=== PATIENT | female | born 1955 | race Caucasian/White ===

== ENCOUNTER 2018-10-05 16:31 | Inpatient (IN) | payer MEDICAID, OTHER ==
[2018-10-05 18:05] LABS: ADD MAN DIFF? NO
[2018-10-05 18:10] LABS: ABNORMAL IP MESSAGE 1; BASOPHILS % 0.4 % (0.0-2.0); EOSINOPHILS # 0.1 10^3/ul (0.0-0.5); EOSINOPHILS % 1.6 % (0.0-7.0); HEMATOCRIT 36.1 % (37.0-47.0); HEMOGLOBIN 11.6 g/dl (12.0-16.0); LYMPHOCYTES # 0.4 10^3/ul (0.8-2.9); LYMPHOCYTES % 6.3 % (15.0-51.0); MEAN CORPUSCULAR HEMOGLOBIN 25.8 pg (29.0-33.0); MEAN CORPUSCULAR HGB CONC 32.1 g/dl (32.0-37.0); MEAN CORPUSCULAR VOLUME 80.2 fl (82.0-101.0); MONOCYTE # 0.4 10^3/ul (0.3-0.9); MONOCYTES % 7.6 % (0.0-11.0); NEUTROPHIL # 4.8 10^3/ul (1.6-7.5); NEUTROPHILS % 83.7 % (39.0-77.0); NUCLEATED RED BLOOD CELLS # 0.1 10^3/ul (0.0-0.0); NUCLEATED RED BLOOD CELLS% 1.6 /100WBC (0.0-0.0); PLATELET COUNT 115 10^3/UL (140-415)
[2018-10-05 18:10] LABS: WHITE BLOOD COUNT 5.7 10^3/ul (4.8-10.8)
[2018-10-05 18:12] LABS: POSITIVE DIFF @See below
[2018-10-05 18:28] LABS: INR 1.31; PROTIME 16.5 Sec (11.9-14.9); PT RATIO 1.3
[2018-10-05 18:37] LABS: ALANINE AMINOTRANSFERASE 25 IU/L (13-69); ALBUMIN 3.3 g/dl (3.3-4.9); ALBUMIN/GLOBULIN RATIO 1.13; ALKALINE PHOSPHATASE 124 IU/L (42-121); ANION GAP 20 (5-13); ASPARTATE AMINO TRANSFERASE 44 IU/L (15-46); BILIRUBIN,INDIRECT 0.2 mg/dl (0-1.1); BILIRUBIN,TOTAL 0.2 mg/dl (0.2-1.3); BLOOD UREA NITROGEN 119 mg/dl (7-20); CARBON DIOXIDE 16 mmol/L (21-31); CHLORIDE 103 mmol/L (97-110); Estimated GFR 5 mL/min (>60); GLUCOSE 177 mg/dl (70-220); POTASSIUM 4.6 mmol/L (3.5-5.1); SODIUM 139 mmol/L (135-144); TOTAL PROTEIN 6.2 g/dl (6.1-8.1)
[2018-10-05 18:57] LABS: CALCIUM 4.5 mg/dl (8.4-10.2)
[2018-10-05 19:03] LABS: B-TYPE NATRIURETIC PEPTIDE 130000 PG/ML (0-125)
[2018-10-05] MEDS: CALCIUM GLUCONATE 10% 2 GM in DEXTROSE 5% 100 ML IVPB (20:16)
[2018-10-05 22:16] LABS: LACTIC ACID 1.5 mmol/L (0.5-2.0)
[2018-10-05] MEDS ORDERED: DEXTROSE 50% 50 ML SYRINGE IV ×2 (23:30)
[2018-10-05] MEDS ORDERED: GLUCOSE GEL 15 GRAM TUBE BUCCAL (23:30)
[2018-10-05] MEDS ORDERED: ONDANSETRON 4 MG INJ IV (23:30)
[2018-10-05] MEDS ORDERED: GLUCOSE GEL 15 GRAM TUBE PO ×2 (23:30)
[2018-10-05] MEDS ORDERED: NACL 0.9% 3 ML SYG IV (23:30)
[2018-10-05] MEDS ORDERED: GLUCAGON 1 MG INJ IM (23:30)
[2018-10-06] MEDS: ACCU-CHEK XX (02:00)
[2018-10-06 03:28] LABS: POTASSIUM,URINE RANDOM 45.3 mmol/L (25-125)
[2018-10-06 03:28] LABS: SODIUM,URINE RANDOM 32 mmol/L (30-90)
[2018-10-06 03:29] LABS: ADD UMIC YES; UR ASCORBIC ACID NEGATIVE (NEGATIVE); UR BACTERIA MANY /HPF (NONE SEEN); UR BILIRUBIN (Dip) NEGATIVE (NEGATIVE); UR BLOOD (Dip) 1+ mg/dL (NEGATIVE); UR CLARITY CLOUDY (CLEAR); UR COLOR YELLOW (YELLOW); UR GLUCOSE (Dip) 2+ mg/dL (NEGATIVE); UR KETONES (Dip) NEGATIVE (NEGATIVE); UR LEUKOCYTE ESTERASE (Dip) 2+ Leu/ul (NEGATIVE); UR MUCUS FEW /HPF (NONE SEEN); UR NITRITE (Dip) NEGATIVE (NEGATIVE); UR RBC 6 /HPF (0-5); UR SPECIFIC GRAVITY (Dip) 1.013 (1.003-1.030); UR TOTAL PROTEIN (Dip) 3+ mg/dl (NEGATIVE); UR UROBILINOGEN (Dip) NEGATIVE (NEGATIVE); UR WBC 60 /HPF (0-5)
[2018-10-06 06:02] LABS: ADD MAN DIFF? NO
[2018-10-06 06:12] LABS: WHITE BLOOD COUNT 5.2 10^3/ul (4.8-10.8)
[2018-10-06 06:12] LABS: ABNORMAL IP MESSAGE 1; BASOPHILS % 0.4 % (0.0-2.0); EOSINOPHILS # 0.1 10^3/ul (0.0-0.5); EOSINOPHILS % 1.9 % (0.0-7.0); HEMATOCRIT 35.8 % (37.0-47.0); HEMOGLOBIN 11.3 g/dl (12.0-16.0); LYMPHOCYTES # 0.5 10^3/ul (0.8-2.9); LYMPHOCYTES % 9.8 % (15.0-51.0); MEAN CORPUSCULAR HEMOGLOBIN 25.2 pg (29.0-33.0); MEAN CORPUSCULAR HGB CONC 31.6 g/dl (32.0-37.0); MEAN CORPUSCULAR VOLUME 79.9 fl (82.0-101.0); MONOCYTE # 0.5 10^3/ul (0.3-0.9); NEUTROPHILS % 77.7 % (39.0-77.0); NUCLEATED RED BLOOD CELLS # 0.2 10^3/ul (0.0-0.0); NUCLEATED RED BLOOD CELLS% 3.7 /100WBC (0.0-0.0); PLATELET COUNT 116 10^3/UL (140-415); RED BLOOD COUNT 4.48 10^6/ul (4.20-5.40)
[2018-10-06 06:34] LABS: POSITIVE DIFF @See below
[2018-10-06 06:51] LABS: ALANINE AMINOTRANSFERASE 25 IU/L (13-69); ALBUMIN 3.2 g/dl (3.3-4.9); ALKALINE PHOSPHATASE 115 IU/L (42-121); ANION GAP 22 (5-13); ASPARTATE AMINO TRANSFERASE 31 IU/L (15-46); BILIRUBIN,INDIRECT 0.3 mg/dl (0-1.1); BILIRUBIN,TOTAL 0.3 mg/dl (0.2-1.3); BLOOD UREA NITROGEN 119 mg/dl (7-20); CARBON DIOXIDE 15 mmol/L (21-31); CHLORIDE 105 mmol/L (97-110); CHOL/HDL RATIO 4.6 RATIO; CHOLESTEROL 108 mg/dl (100-200); CREATININE 7.25 mg/dl (0.44-1.00); Estimated GFR 6 mL/min (>60); GLUCOSE 133 mg/dl (70-220); HDL CHOLESTEROL 23 mg/dl (35-98); LDL CHOLESTEROL,CALCULATED 70 mg/dl; MAGNESIUM 3.1 mg/dl (1.7-2.5); POTASSIUM 4.2 mmol/L (3.5-5.1); SODIUM 142 mmol/L (135-144); TOTAL PROTEIN 6.1 g/dl (6.1-8.1); TRIGLYCERIDES 73 mg/dl (0-149)
[2018-10-06 06:56] LABS: CALCIUM 4.9 mg/dl (8.4-10.2)
[2018-10-06 07:16] LABS: HEMOGLOBIN A1C 6.9 % (0-5.9)
[2018-10-06] MEDS ORDERED: HEPARIN 5,000 UNIT/0.5 ML VIAL (08:11)
[2018-10-06] MEDS: INSULIN ASPART [NOVOLOG] 3 ML PEN SC ×4 (08:34→20:55)
[2018-10-06] MEDS: HEPARIN 5,000 UNIT/1 ML VIAL SC (09:00)
[2018-10-06] MEDS: CALCIUM GLUCONATE 10% 2 GM in DEXTROSE 5% 100 ML IVPB (09:00)
[2018-10-06] MEDS: CITRIC ACID/NA CITRATE 30 ML CUP PO ×2 (10:00→20:48)
[2018-10-06] MEDS: CALCIUM/VITAMIN D (500/200) TAB PO ×2 (10:00→20:48)
[2018-10-06] MEDS: hydrALAzine 20 MG INJ IV (15:21)
[2018-10-06] MEDS: FUROSEMIDE 40 MG INJ IV (17:13)
[2018-10-06] MEDS: AMLODIPINE 5 MG TAB PO (17:19)
[2018-10-07] MEDS: ACCU-CHEK XX (02:53)
[2018-10-07] MEDS: FUROSEMIDE 40 MG INJ IV ×2 (05:55→21:00)
[2018-10-07 06:02] LABS: ANION GAP 22 (5-13); CARBON DIOXIDE 15 mmol/L (21-31); CHLORIDE 102 mmol/L (97-110); CREATININE 7.75 mg/dl (0.44-1.00); Estimated GFR 5 mL/min (>60); GLUCOSE 127 mg/dl (70-220); PHOSPHORUS 9.2 mg/dl (2.5-4.9); POTASSIUM 3.7 mmol/L (3.5-5.1); SODIUM 139 mmol/L (135-144)
[2018-10-07 06:17] LABS: BLOOD UREA NITROGEN > 120 mg/dl (7-20)
[2018-10-07 06:32] LABS: CALCIUM 5.3 mg/dl (8.4-10.2)
[2018-10-07] MEDS: INSULIN ASPART [NOVOLOG] 3 ML PEN SC ×4 (07:46→21:37)
[2018-10-07] MEDS: AMLODIPINE 5 MG TAB PO (09:02)
[2018-10-07] MEDS: CITRIC ACID/NA CITRATE 30 ML CUP PO ×2 (09:02→21:00)
[2018-10-07] MEDS: CALCIUM/VITAMIN D (500/200) TAB PO ×2 (09:02→21:00)
[2018-10-07 11:09] LABS: INR 1.35; PROTIME 16.9 Sec (11.9-14.9); PT RATIO 1.3
[2018-10-07] MEDS: SEVELAMER CARBONATE 800 MG TABLET PO ×2 (12:00→18:43)
[2018-10-07] MEDS: CALCITRIOL 1 MCG INJ IV (13:05)
[2018-10-07] MEDS: ACETAMINOPHEN 325 MG TAB PO (13:27)
[2018-10-07] MEDS ORDERED: SOD CHLORIDE 0.9% 500 ML (14:17)
[2018-10-07] MEDS ORDERED: HEPARIN 1000 UNITS/ML 10 ML INJ (14:17)
[2018-10-07] MEDS ORDERED: LIDOCAINE 2% (MDV) 20 ML INJ (14:17)
[2018-10-07 16:59] LABS: HEPATITIS B SURFACE ANTIGEN NEGATIVE (NEGATIVE)
[2018-10-07 17:17] LABS: HEPATITIS B SURFACE ANTIBODY NEGATIVE (NEGATIVE)
[2018-10-07] MEDS: MANNITOL 25% 50 ML INJ IV* (17:26)
[2018-10-07] MEDS: HEPARIN 1000 UNITS/ML 10 ML INJ CATHETER (18:36)
[2018-10-08] MEDS: hydrALAzine 20 MG INJ IV (00:37)
[2018-10-08] MEDS: FUROSEMIDE 40 MG INJ IV ×2 (05:24→17:01)
[2018-10-08 05:42] LABS: ABNORMAL IP MESSAGE 1; ADD MAN DIFF? NO; BASOPHILS % 0.4 % (0.0-2.0); EOSINOPHILS # 0.1 10^3/ul (0.0-0.5); EOSINOPHILS % 2.5 % (0.0-7.0); HEMATOCRIT 31.2 % (37.0-47.0); HEMOGLOBIN 10.2 g/dl (12.0-16.0); LYMPHOCYTES # 0.4 10^3/ul (0.8-2.9); LYMPHOCYTES % 7.6 % (15.0-51.0); MEAN CORPUSCULAR HEMOGLOBIN 25.4 pg (29.0-33.0); MEAN CORPUSCULAR HGB CONC 32.7 g/dl (32.0-37.0); MEAN CORPUSCULAR VOLUME 77.6 fl (82.0-101.0); MEAN PLATELET VOLUME 10.6 fl (7.4-10.4); MONOCYTE # 0.6 10^3/ul (0.3-0.9); MONOCYTES % 12.2 % (0.0-11.0); NEUTROPHIL # 3.7 10^3/ul (1.6-7.5); NEUTROPHILS % 77.1 % (39.0-77.0); NUCLEATED RED BLOOD CELLS% 0.6 /100WBC (0.0-0.0); PLATELET COUNT 111 10^3/UL (140-415); RED BLOOD COUNT 4.02 10^6/ul (4.20-5.40); RED CELL DISTRIBUTION WIDTH 16.8 % (11.5-14.5)
[2018-10-08 05:42] LABS: WHITE BLOOD COUNT 4.8 10^3/ul (4.8-10.8)
[2018-10-08 05:44] LABS: POSITIVE DIFF @See below
[2018-10-08 06:29] LABS: ANION GAP 15 (5-13); BLOOD UREA NITROGEN 95 mg/dl (7-20); CARBON DIOXIDE 22 mmol/L (21-31); CHLORIDE 102 mmol/L (97-110); CREATININE 6.01 mg/dl (0.44-1.00); Estimated GFR 7 mL/min (>60); GLUCOSE 166 mg/dl (70-220); MAGNESIUM 2.5 mg/dl (1.7-2.5); PHOSPHORUS 6.4 mg/dl (2.5-4.9); POTASSIUM 3.5 mmol/L (3.5-5.1); SODIUM 139 mmol/L (135-144)
[2018-10-08 06:44] LABS: CALCIUM 5.8 mg/dl (8.4-10.2)
[2018-10-08] MEDS: INSULIN ASPART [NOVOLOG] 3 ML PEN SC ×4 (07:42→20:57)
[2018-10-08] MEDS: CITRIC ACID/NA CITRATE 30 ML CUP PO ×2 (08:42→20:58)
[2018-10-08] MEDS: LINAGLIPTIN 5 MG TABLET PO (08:42)
[2018-10-08] MEDS: CALCIUM/VITAMIN D (500/200) TAB PO ×2 (08:42→20:58)
[2018-10-08] MEDS: SEVELAMER CARBONATE 800 MG TABLET PO ×3 (08:42→17:01)
[2018-10-08] MEDS: AMLODIPINE 5 MG TAB PO (08:42)
[2018-10-08] MEDS: CALCIUM GLUCONATE 10% 1 GM in DEXTROSE 5% 100 ML IVPB (08:43)
[2018-10-08] MEDS: HEPARIN 1000 UNITS/ML 10 ML INJ CATHETER (16:15)
[2018-10-08 19:18] LABS: PTH CALCIUM 5.5 mg/dL (8.6-10.4)
[2018-10-09 05:45] LABS: ADD MAN DIFF? NO
[2018-10-09 05:47] LABS: WHITE BLOOD COUNT 5.7 10^3/ul (4.8-10.8)
[2018-10-09 05:47] LABS: ABNORMAL IP MESSAGE 1; BASOPHILS % 0.4 % (0.0-2.0); EOSINOPHILS # 0.2 10^3/ul (0.0-0.5); EOSINOPHILS % 3.5 % (0.0-7.0); HEMATOCRIT 33.1 % (37.0-47.0); HEMOGLOBIN 10.4 g/dl (12.0-16.0); LYMPHOCYTES # 0.7 10^3/ul (0.8-2.9); LYMPHOCYTES % 12.5 % (15.0-51.0); MEAN CORPUSCULAR HEMOGLOBIN 25.2 pg (29.0-33.0); MEAN CORPUSCULAR HGB CONC 31.4 g/dl (32.0-37.0); MEAN CORPUSCULAR VOLUME 80.1 fl (82.0-101.0); MEAN PLATELET VOLUME 11.2 fl (7.4-10.4); MONOCYTE # 0.9 10^3/ul (0.3-0.9); MONOCYTES % 15.5 % (0.0-11.0); NEUTROPHIL # 3.9 10^3/ul (1.6-7.5); NEUTROPHILS % 67.7 % (39.0-77.0); PLATELET COUNT 127 10^3/UL (140-415); RED BLOOD COUNT 4.13 10^6/ul (4.20-5.40); RED CELL DISTRIBUTION WIDTH 16.9 % (11.5-14.5)
[2018-10-09] MEDS: FUROSEMIDE 40 MG INJ IV ×2 (05:48→17:29)
[2018-10-09 06:02] LABS: POSITIVE DIFF @See below
[2018-10-09 06:15] LABS: ANION GAP 11 (5-13); BLOOD UREA NITROGEN 74 mg/dl (7-20); CALCIUM 6.4 mg/dl (8.4-10.2); CARBON DIOXIDE 27 mmol/L (21-31); CHLORIDE 101 mmol/L (97-110); CREATININE 5.35 mg/dl (0.44-1.00); Estimated GFR 8 mL/min (>60); GLUCOSE 112 mg/dl (70-220); MAGNESIUM 2.4 mg/dl (1.7-2.5); PHOSPHORUS 5.5 mg/dl (2.5-4.9); POTASSIUM 4.1 mmol/L (3.5-5.1); SODIUM 139 mmol/L (135-144)
[2018-10-09 07:46] LABS: PTH INTACT 484 pg/mL (14-64)
[2018-10-09] MEDS: INSULIN ASPART [NOVOLOG] 3 ML PEN SC ×4 (07:46→20:08)
[2018-10-09] MEDS: CALCIUM/VITAMIN D (500/200) TAB PO ×2 (08:11→20:09)
[2018-10-09] MEDS: SEVELAMER CARBONATE 800 MG TABLET PO ×3 (08:11→17:28)
[2018-10-09] MEDS: CITRIC ACID/NA CITRATE 30 ML CUP PO ×2 (08:11→20:09)
[2018-10-09] MEDS: LINAGLIPTIN 5 MG TABLET PO (08:11)
[2018-10-09] MEDS: AMLODIPINE 5 MG TAB PO ×2 (08:14→15:46)
[2018-10-09 09:20] LABS: IRON 21 ug/dl (35-150)
[2018-10-09 09:30] LABS: % IRON SATURATION 6 % SAT (22-52); TOTAL IRON BINDING CAPACITY 342 ug/dl (241-421)
[2018-10-09 09:52] LABS: FERRITIN 11.5 ng/ml (11.1-264.0)
[2018-10-09] MEDS: HEPARIN 1000 UNITS/ML 10 ML INJ CATHETER ×2 (15:15→15:18)
[2018-10-09] MEDS: hydrALAzine 20 MG INJ IV (15:47)
[2018-10-10 05:25] LABS: ADD MAN DIFF? NO
[2018-10-10 05:35] LABS: WHITE BLOOD COUNT 5.3 10^3/ul (4.8-10.8)
[2018-10-10 05:35] LABS: BASOPHILS % 0.6 % (0.0-2.0); EOSINOPHILS # 0.1 10^3/ul (0.0-0.5); EOSINOPHILS % 2.6 % (0.0-7.0); HEMOGLOBIN 9.8 g/dl (12.0-16.0); LYMPHOCYTES # 0.7 10^3/ul (0.8-2.9); LYMPHOCYTES % 13.5 % (15.0-51.0); MEAN CORPUSCULAR HEMOGLOBIN 24.9 pg (29.0-33.0); MEAN CORPUSCULAR HGB CONC 30.6 g/dl (32.0-37.0); MEAN CORPUSCULAR VOLUME 81.2 fl (82.0-101.0); MEAN PLATELET VOLUME 11.5 fl (7.4-10.4); MONOCYTE # 0.9 10^3/ul (0.3-0.9); NEUTROPHIL # 3.6 10^3/ul (1.6-7.5); NEUTROPHILS % 66.9 % (39.0-77.0); PLATELET COUNT 125 10^3/UL (140-415); RED BLOOD COUNT 3.94 10^6/ul (4.20-5.40); RED CELL DISTRIBUTION WIDTH 16.8 % (11.5-14.5)
[2018-10-10 05:58] LABS: ANION GAP 8 (5-13); BLOOD UREA NITROGEN 55 mg/dl (7-20); CALCIUM 6.6 mg/dl (8.4-10.2); CARBON DIOXIDE 30 mmol/L (21-31); CHLORIDE 98 mmol/L (97-110); CREATININE 3.86 mg/dl (0.44-1.00); Estimated GFR 12 mL/min (>60); GLUCOSE 132 mg/dl (70-220); MAGNESIUM 2.2 mg/dl (1.7-2.5); PHOSPHORUS 4.2 mg/dl (2.5-4.9); POTASSIUM 3.8 mmol/L (3.5-5.1); SODIUM 136 mmol/L (135-144)
[2018-10-10] MEDS: FUROSEMIDE 40 MG INJ IV (06:08)
[2018-10-10] MEDS: INSULIN ASPART [NOVOLOG] 3 ML PEN SC ×4 (07:50→21:50)
[2018-10-10] MEDS: CITRIC ACID/NA CITRATE 30 ML CUP PO ×3 (09:00→20:57)
[2018-10-10] MEDS: AMLODIPINE 5 MG TAB PO (09:00)
[2018-10-10] MEDS: SEVELAMER CARBONATE 800 MG TABLET PO ×3 (09:04→17:41)
[2018-10-10] MEDS: LINAGLIPTIN 5 MG TABLET PO (09:05)
[2018-10-10] MEDS: CALCIUM/VITAMIN D (500/200) TAB PO ×2 (09:06→20:57)
[2018-10-10] MEDS: MULTIVIT/CA CARB/B CMPLX/FA TAB PO (09:36)
[2018-10-10] MEDS: CALCITRIOL 0.25 MCG CAP PO (09:36)
[2018-10-11 05:23] LABS: ADD MAN DIFF? NO
[2018-10-11 05:26] LABS: ABNORMAL IP MESSAGE 1; BASOPHILS % 0.4 % (0.0-2.0); EOSINOPHILS # 0.2 10^3/ul (0.0-0.5); EOSINOPHILS % 3.3 % (0.0-7.0); HEMATOCRIT 30.9 % (37.0-47.0); HEMOGLOBIN 9.5 g/dl (12.0-16.0); LYMPHOCYTES # 0.6 10^3/ul (0.8-2.9); LYMPHOCYTES % 10.4 % (15.0-51.0); MEAN CORPUSCULAR HEMOGLOBIN 24.9 pg (29.0-33.0); MEAN CORPUSCULAR HGB CONC 30.7 g/dl (32.0-37.0); MEAN CORPUSCULAR VOLUME 81.1 fl (82.0-101.0); MEAN PLATELET VOLUME 11.4 fl (7.4-10.4); MONOCYTE # 0.7 10^3/ul (0.3-0.9); MONOCYTES % 13.5 % (0.0-11.0); NEUTROPHIL # 3.9 10^3/ul (1.6-7.5); NEUTROPHILS % 72.2 % (39.0-77.0); PLATELET COUNT 115 10^3/UL (140-415); RED BLOOD COUNT 3.81 10^6/ul (4.20-5.40); RED CELL DISTRIBUTION WIDTH 17.5 % (11.5-14.5)
[2018-10-11 05:26] LABS: WHITE BLOOD COUNT 5.4 10^3/ul (4.8-10.8)
[2018-10-11 05:39] LABS: POSITIVE DIFF @See below
[2018-10-11 06:08] LABS: ANION GAP 11 (5-13); BLOOD UREA NITROGEN 78 mg/dl (7-20); CALCIUM 6.4 mg/dl (8.4-10.2); CARBON DIOXIDE 29 mmol/L (21-31); CHLORIDE 95 mmol/L (97-110); Estimated GFR 9 mL/min (>60); GLUCOSE 133 mg/dl (70-220); MAGNESIUM 2.3 mg/dl (1.7-2.5); PHOSPHORUS 4.3 mg/dl (2.5-4.9); POTASSIUM 4.1 mmol/L (3.5-5.1); SODIUM 135 mmol/L (135-144)
[2018-10-11] MEDS: INSULIN ASPART [NOVOLOG] 3 ML PEN SC ×4 (07:50→20:39)
[2018-10-11] MEDS: CITRIC ACID/NA CITRATE 30 ML CUP PO ×2 (09:00→20:39)
[2018-10-11] MEDS: CALCIUM/VITAMIN D (500/200) TAB PO ×2 (09:00→20:39)
[2018-10-11] MEDS: CALCITRIOL 0.25 MCG CAP PO (09:00)
[2018-10-11] MEDS: LINAGLIPTIN 5 MG TABLET PO (09:01)
[2018-10-11] MEDS: AMLODIPINE 5 MG TAB PO (09:01)
[2018-10-11] MEDS: SEVELAMER CARBONATE 800 MG TABLET PO ×3 (09:01→17:47)
[2018-10-11] MEDS: MULTIVIT/CA CARB/B CMPLX/FA TAB PO (09:01)
[2018-10-11] MEDS: HEPARIN 1000 UNITS/ML 10 ML INJ CATHETER (14:13)
[2018-10-12] MEDS: INSULIN ASPART [NOVOLOG] 3 ML PEN SC ×4 (07:50→20:43)
[2018-10-12] MEDS: CALCITRIOL 0.25 MCG CAP PO (08:24)
[2018-10-12] MEDS: SEVELAMER CARBONATE 800 MG TABLET PO ×3 (08:24→18:00)
[2018-10-12] MEDS: MULTIVIT/CA CARB/B CMPLX/FA TAB PO (08:24)
[2018-10-12] MEDS: CITRIC ACID/NA CITRATE 30 ML CUP PO ×2 (08:24→20:42)
[2018-10-12] MEDS: CALCIUM/VITAMIN D (500/200) TAB PO ×2 (08:24→20:42)
[2018-10-12] MEDS: LINAGLIPTIN 5 MG TABLET PO (08:25)
[2018-10-12] MEDS: AMLODIPINE 5 MG TAB PO (08:25)
[2018-10-13] MEDS: INSULIN ASPART [NOVOLOG] 3 ML PEN SC ×4 (07:50→21:02)
[2018-10-13] MEDS: CALCITRIOL 0.25 MCG CAP PO (08:49)
[2018-10-13] MEDS: LINAGLIPTIN 5 MG TABLET PO (08:50)
[2018-10-13] MEDS: CALCIUM/VITAMIN D (500/200) TAB PO ×2 (08:50→20:59)
[2018-10-13] MEDS: SEVELAMER CARBONATE 800 MG TABLET PO ×3 (08:50→17:37)
[2018-10-13] MEDS: MULTIVIT/CA CARB/B CMPLX/FA TAB PO (08:50)
[2018-10-13] MEDS: AMLODIPINE 5 MG TAB PO (08:50)
[2018-10-13] MEDS ORDERED: CITRIC ACID/SODIUM CITRATE 15 ML CUP PO (09:00)
[2018-10-14 05:50] LABS: ADD MAN DIFF? NO
[2018-10-14 05:59] LABS: WHITE BLOOD COUNT 4.9 10^3/ul (4.8-10.8)
[2018-10-14 05:59] LABS: ABNORMAL IP MESSAGE 1; BASOPHILS % 0.6 % (0.0-2.0); EOSINOPHILS # 0.1 10^3/ul (0.0-0.5); EOSINOPHILS % 2.2 % (0.0-7.0); HEMATOCRIT 30.1 % (37.0-47.0); HEMOGLOBIN 9.4 g/dl (12.0-16.0); LYMPHOCYTES # 0.6 10^3/ul (0.8-2.9); LYMPHOCYTES % 11.4 % (15.0-51.0); MEAN CORPUSCULAR HEMOGLOBIN 25.5 pg (29.0-33.0); MEAN CORPUSCULAR HGB CONC 31.2 g/dl (32.0-37.0); MEAN CORPUSCULAR VOLUME 81.8 fl (82.0-101.0); MEAN PLATELET VOLUME 11.2 fl (7.4-10.4); MONOCYTE # 0.6 10^3/ul (0.3-0.9); MONOCYTES % 11.6 % (0.0-11.0); NEUTROPHIL # 3.7 10^3/ul (1.6-7.5); PLATELET COUNT 110 10^3/UL (140-415); RED BLOOD COUNT 3.68 10^6/ul (4.20-5.40); RED CELL DISTRIBUTION WIDTH 17.6 % (11.5-14.5)
[2018-10-14 06:08] LABS: POSITIVE DIFF @See below
[2018-10-14 06:33] LABS: ANION GAP 12 (5-13); BLOOD UREA NITROGEN 90 mg/dl (7-20); CALCIUM 7.1 mg/dl (8.4-10.2); CARBON DIOXIDE 29 mmol/L (21-31); CHLORIDE 95 mmol/L (97-110); CREATININE 5.12 mg/dl (0.44-1.00); Estimated GFR 9 mL/min (>60); GLUCOSE 138 mg/dl (70-220); MAGNESIUM 2.5 mg/dl (1.7-2.5); PHOSPHORUS 5.2 mg/dl (2.5-4.9); POTASSIUM 4.9 mmol/L (3.5-5.1); SODIUM 136 mmol/L (135-144)
[2018-10-14] MEDS: INSULIN ASPART [NOVOLOG] 3 ML PEN SC ×4 (08:30→21:00)
[2018-10-14] MEDS: AMLODIPINE 5 MG TAB PO (09:00)
[2018-10-14] MEDS: LINAGLIPTIN 5 MG TABLET PO (09:19)
[2018-10-14] MEDS: CALCIUM/VITAMIN D (500/200) TAB PO ×2 (09:20→20:32)
[2018-10-14] MEDS: MULTIVIT/CA CARB/B CMPLX/FA TAB PO (09:20)
[2018-10-14] MEDS: SEVELAMER CARBONATE 800 MG TABLET PO ×3 (09:20→18:00)
[2018-10-14] MEDS: CALCITRIOL 0.25 MCG CAP PO (09:20)
[2018-10-14] MEDS: HEPARIN 1000 UNITS/ML 10 ML INJ CATHETER (11:45)
[2018-10-14] MEDS ORDERED: IODIXANOL LOCM 100 ML BTL (15:07)
[2018-10-14] MEDS ORDERED: HEPARIN 1000 UNITS/NS (A-LINE) 1,000 ML (15:07)
[2018-10-14] MEDS ORDERED: LIDOCAINE 2% (MDV) 20 ML INJ (15:07)
[2018-10-14] MEDS ORDERED: MIDAZOLAM 1 MG/ML 2 ML INJ (15:07)
[2018-10-14] MEDS ORDERED: HEPARIN 1000 UNITS/ML 10 ML INJ (15:07)
[2018-10-14] MEDS ORDERED: FENTAnyl 50 MCG/ML VIAL (15:07)
[2018-10-14] MEDS: ACETAMINOPHEN 325 MG TAB PO (21:34)
[2018-10-15] MEDS: INSULIN ASPART [NOVOLOG] 3 ML PEN SC ×2 (07:50→12:43)
[2018-10-15] MEDS: MULTIVIT/CA CARB/B CMPLX/FA TAB PO (08:43)
[2018-10-15] MEDS: SEVELAMER CARBONATE 800 MG TABLET PO ×2 (08:43→12:43)
[2018-10-15] MEDS: CALCITRIOL 0.25 MCG CAP PO (08:44)
[2018-10-15] MEDS: LINAGLIPTIN 5 MG TABLET PO (08:44)
[2018-10-15] MEDS: AMLODIPINE 5 MG TAB PO (08:46)
[2018-10-15] MEDS: CALCIUM/VITAMIN D (500/200) TAB PO (08:46)
[2018-10-15] MEDS: BENAZEPRIL 20 MG TAB PO (08:46)
== END 2018-10-15 14:40 | disposition home or self-care (01) | DRG 682 ==
LOC: MS1 10-10 00:10 → E/R 16:31 → 6WM 19:48
PROC: 5A1D70Z Performance of Urinary Filtration, Intermittent, Less than 6 Hours Per Day (ICD-10-PCS; principal; 2018-10-07 13:55)
PROC: 5A1D70Z Performance of Urinary Filtration, Intermittent, Less than 6 Hours Per Day (ICD-10-PCS; 2018-10-07 13:55)
PROC: 5A1D70Z Performance of Urinary Filtration, Intermittent, Less than 6 Hours Per Day (ICD-10-PCS; 2018-10-07 13:55)
PROC: 5A1D70Z Performance of Urinary Filtration, Intermittent, Less than 6 Hours Per Day (ICD-10-PCS; 2018-10-07 13:55)
PROC: 5A1D70Z Performance of Urinary Filtration, Intermittent, Less than 6 Hours Per Day (ICD-10-PCS; 2018-10-07 13:55)
PROC: 5A1D70Z Performance of Urinary Filtration, Intermittent, Less than 6 Hours Per Day (ICD-10-PCS; 2018-10-07 13:55)
PROC: 02H633Z Insertion of Infusion Device into Right Atrium, Percutaneous Approach (ICD-10-PCS; 2018-10-07 13:55)
PROC: B244ZZZ Ultrasonography of Right Heart (ICD-10-PCS; 2018-10-07 13:55)
DX: N17.9 Acute kidney failure, unspecified (principal); I50.33 Acute on chronic diastolic (congestive) heart failure; I13.2 Hypertensive heart and chronic kidney disease with heart failure and with stage 5 chronic kidney disease, or end stage renal disease; E87.2 Acidosis; E11.22 Type 2 diabetes mellitus with diabetic chronic kidney disease; E11.40 Type 2 diabetes mellitus with diabetic neuropathy, unspecified; E83.39 Other disorders of phosphorus metabolism; E83.42 Hypomagnesemia; E83.51 Hypocalcemia; E87.70 Fluid overload, unspecified; N18.6 End stage renal disease; E78.5 Hyperlipidemia, unspecified; Z99.2 Dependence on renal dialysis; Z79.4 Long term (current) use of insulin; Z79.82 Long term (current) use of aspirin; Z79.84 Long term (current) use of oral hypoglycemic drugs
CPT/HCPCS: 36415; 36581; 71045; 76775; 80048; 80053; 80061; 81001; 82306; 82436; 82652; 82728; 82962; 83036; 83540; 83605; 83735; 83880; 83970; 84100; 84133; 84300; 84484; 85025; 85610; 86706; 87340; 90686; 90935; 93005; 93306; 99285-25

== ENCOUNTER 2019-01-08 08:22 | Day surgery (SDC) | payer OTHER ==
[~2019-01-08 08:22] MED LIST: LIDOCAINE 2% (SDV) 5 ML INJ; ONDANSETRON 4 MG INJ
[2019-01-08 09:35] LABS: ADD MAN DIFF? NO
[2019-01-08 09:39] LABS: WHITE BLOOD COUNT 4.4 10^3/ul (4.8-10.8)
[2019-01-08 09:39] LABS: BASOPHILS % 0.9 % (0.0-2.0); EOSINOPHILS # 0.4 10^3/ul (0.0-0.5); EOSINOPHILS % 8.6 % (0.0-7.0); HEMATOCRIT 41.6 % (37.0-47.0); HEMOGLOBIN 13.6 g/dl (12.0-16.0); LYMPHOCYTES # 0.8 10^3/ul (0.8-2.9); LYMPHOCYTES % 17.4 % (15.0-51.0); MEAN CORPUSCULAR HEMOGLOBIN 30.7 pg (29.0-33.0); MEAN CORPUSCULAR HGB CONC 32.7 g/dl (32.0-37.0); MEAN CORPUSCULAR VOLUME 93.9 fl (82.0-101.0); MEAN PLATELET VOLUME 10.7 fl (7.4-10.4); MONOCYTE # 0.4 10^3/ul (0.3-0.9); NEUTROPHIL # 2.8 10^3/ul (1.6-7.5); NEUTROPHILS % 63.9 % (39.0-77.0); PLATELET COUNT 123 10^3/UL (140-415); RED BLOOD COUNT 4.43 10^6/ul (4.20-5.40)
[2019-01-08 09:43] LABS: HOLD TRANSMISSIONS 1
[2019-01-08 09:55] LABS: ALANINE AMINOTRANSFERASE 21 IU/L (13-69); ALBUMIN 4.7 g/dl (3.3-4.9); ALBUMIN/GLOBULIN RATIO 1.34; ALKALINE PHOSPHATASE 82 IU/L (42-121); ANION GAP 18 (5-13); ASPARTATE AMINO TRANSFERASE 21 IU/L (15-46); BILIRUBIN,INDIRECT 0.1 mg/dl (0-1.1); BILIRUBIN,TOTAL 0.1 mg/dl (0.2-1.3); CALCIUM 9.2 mg/dl (8.4-10.2); CARBON DIOXIDE 23 mmol/L (21-31); CHLORIDE 97 mmol/L (97-110); Estimated GFR 7 mL/min (>60); GLUCOSE 132 mg/dl (70-220); POTASSIUM 4.7 mmol/L (3.5-5.1); SODIUM 138 mmol/L (135-144); TOTAL PROTEIN 8.2 g/dl (6.1-8.1)
[2019-01-08 09:58] LABS: BLOOD UREA NITROGEN 50 mg/dl (7-20); CREATININE 5.74 mg/dl (0.44-1.00)
[2019-01-08 10:15] LABS: INR 0.96; PROTIME 12.9 Sec (11.9-14.9)
[2019-01-08 10:16] LABS: PARTIAL THROMBOPLASTIN TIME 27.5 Sec (23.0-35.0)
[2019-01-08] MEDS ORDERED: FENTAnyl 50 MCG/ML VIAL (10:42)
[2019-01-08] MEDS ORDERED: PROPOFOL 20 ML (10:43)
[2019-01-08] MEDS ORDERED: MIDAZOLAM 1 MG/ML 2 ML INJ (10:43)
[2019-01-08] MEDS ORDERED: METOCLOPRAMIDE 10 MG INJ (10:45)
[2019-01-08] MEDS ORDERED: CEFAZOLIN 1 GM INJ (11:22)
[2019-01-08] MEDS ORDERED: ROPIVACAINE 0.5 % 30 ML VIAL (11:23)
[2019-01-08] MEDS ORDERED: ETOMIDATE 20 MG INJ (11:50)
[2019-01-08] MEDS ORDERED: FENTAnyl 50 MCG/ML VIAL IV (14:00)
[2019-01-08] MEDS ORDERED: ONDANSETRON 4 MG INJ IV (14:00)
[2019-01-08] MEDS ORDERED: hydrALAzine 20 MG INJ IV (14:00)
[2019-01-08] MEDS ORDERED: DIPHENHYDRAMINE 50 MG INJ IV (14:00)
[2019-01-08] MEDS ORDERED: LEVALBUTEROL (NEB) 1.25 MG/0.5 ML AMP HHN (14:00)
[2019-01-08] MEDS ORDERED: HYDROmorphONE 1 MG/5 ML IV SYRINGE IV (14:00)
[2019-01-08] MEDS ORDERED: LABETALOL HCL 20MG INJ IV (14:00)
[2019-01-08] MEDS: LIDOCAINE 1% (MPF) 30 ML INJ (14:03)
[2019-01-08] MEDS: GELATIN SIZE 100 SPONGE (14:03)
[2019-01-08] MEDS: BUPIVACAINE 0.25% (MPF) 30 ML INJ (14:03)
[2019-01-08] MEDS: HEPARIN 1000 UNITS/ML 10 ML INJ (14:03)
[2019-01-08] MEDS: THROMBIN (BOVINE) 5,000 UNIT VIAL TP (14:03)
== END 2019-01-08 16:08 | disposition home or self-care (01) ==
LOC: SDS 08:22
DX: I13.2 Hypertensive heart and chronic kidney disease with heart failure and with stage 5 chronic kidney disease, or end stage renal disease (principal); N18.6 End stage renal disease; I50.9 Heart failure, unspecified; E78.5 Hyperlipidemia, unspecified
CPT/HCPCS: 36819; 71045; 80053; 82962; 85025; 85610; 85730; 93005